=== PATIENT | male | born 1985 | race Caucasian/White ===

== ENCOUNTER 2020-06-28 12:31 | Emergency (ER) | payer OTHER ==
[~2020-06-28] VITALS: Ht 172.7 cm; Wt 74.8 kg
[~2020-06-28 12:31] MED LIST: PERCOCET 5-3251 EACH PO
[2020-06-28] MEDS ORDERED: XANAX0.5 MG PO (15:36)
--- NOTE | 2020-06-29 16:56 | EKG ---
[facility] [address] [facility] [place], [place] [address] Signed Sinus tachycardia Otherwise normal ECG No previous ECGs available Confirmed by YUDI NICHOLSON MD ([id number]) on 06/29/2020 4:56:01 PM Electronically Signed By: YUDI NICHOLSON MD 06/29/20 1656 PATIENT NAME: SAMIR HU Electrocardiogram DATE OF : 87 PHYSICIAN: YUDI NICHOLSON MD REPORT #: [id number] REPORT IS CONFIDENTIAL AND NOT TO BE RELEASED WITHOUT AUTHORIZATION
== END 2020-06-28 16:15 | disposition home or self-care (01) ==
LOC: ED 12:31
DX: F41.9 Anxiety disorder, unspecified (principal); F17.200 Nicotine dependence, unspecified, uncomplicated
CPT/HCPCS: 71045; 80048; 83735; 84443; 84484; 85025; 93005; 93010; 99285-25

== ENCOUNTER 2021-10-09 13:30 | Emergency (ER) | payer OTHER ==
[~2021-10-09] VITALS: Ht 172.7 cm; Wt 90.7 kg
[~2021-10-09 13:30] MED LIST changes: +XANAX0.5 MG PO
[2021-10-09] MEDS ORDERED: XANAX1 MG PO (16:15)
[2021-10-09] MEDS ORDERED: HYDROXYZINE HCL25 MG PO (16:15)
== END 2021-10-09 16:28 | disposition home or self-care (01) ==
LOC: ED 13:30
DX: F41.9 Anxiety disorder, unspecified (principal); F10.10 Alcohol abuse, uncomplicated; F17.200 Nicotine dependence, unspecified, uncomplicated
CPT/HCPCS: 36415; 80053; 81001; 83735; 85025; 96374; 99283-25; J2060; J7030; J7040